=== PATIENT | male | born 1950 | race American Indian/Alaskan Native ===

== ENCOUNTER 2022-03-07 10:46 | Emergency (ER) | payer MEDICARE ==
[2022-03-07 11:04] VITALS: BP 172/90
--- NOTE | 2022-03-07 14:17 | Emergency Department Report ---
ED Recheck HPI - General Chief Complaint: High BP Stated Complaint: NATALIABRUNO/HIGH BLOOD PRESSURE Time Seen by Provider: 03/07/22 13:44 Source: patient Mode of arrival: Ambulatory Limitations: No Limitations - History of Present Illness Initial Comments: 71 yo come in p being sent by pcp for inc bp. Today was pt's welcome visit to new pcp and they did his bp and it was elevated. they gave him clonodine .1 and sent him here. He has no symptoms. Nor did he at the [facility] office. No cp no sob no headache no hx htn Pt states his office was to call in losartan but they did not - Related Data Allergies Allergy/AdvReac Type Severity Reaction Status Date / Time No Known Allergies Allergy Unverified 03/07/22 11:04 ED Review of Systems ROS: Stated complaint: DR BANUELOS/HIGH BLOOD PRESSURE Other details as noted in HPI Comment: All other systems reviewed and negative ED Past Medical Hx - Past Medical History Previous Medical History?: No - Surgical History Past Surgical History?: No - Family History Family history: no significant - Social History Smoking Status: Never Smoker Substance Use Type: None ED Physical Exam - General Limitations: No Limitations General appearance: alert, in no apparent distress - Head Head exam: Present: atraumatic, normocephalic - Eye Eye exam: Present: normal appearance - ENT ENT exam: Present: mucous membranes moist - Neck Neck exam: Present: normal inspection - Respiratory Respiratory exam: Present: normal lung sounds bilaterally. Absent: respiratory distress - Cardiovascular Cardiovascular Exam: Present: regular rate, normal rhythm. Absent: systolic murmur, diastolic murmur, rubs, gallop - GI/Abdominal GI/Abdominal exam: Present: soft, normal bowel sounds - Rectal Rectal exam: Present: deferred - Extremities Exam Extremities exam: Present: normal inspection - Back Exam Back exam: Present: normal inspection - Neurological Exam Neurological exam: Present: alert, oriented X3 - Psychiatric Psychiatric exam: Present: normal affect, normal mood - Skin Skin exam: Present: warm, dry, intact, normal color. Absent: rash ED Course Vital Signs 03/07/22 11:03 Temperature 98.5 F Pulse Rate 53 L Respiratory 18 Rate Blood Pressure 172/90 [Left] O2 Sat by Pulse 99 Oximetry ED Recheck MDM - Core Measures Measure Exclusions: not indicated - Medical Decision Making Vital Signs 03/07/22 11:03 Temperature 98.5 F Pulse Rate 53 L Respiratory 18 Rate Blood Pressure 172/90 [Left] O2 Sat by Pulse 99 Oximetry dc home with dc plan of care including diet, meds, activity and follow up. called the doctors office while here and they are to send the losartan rx to [facility] pharmacy. Critical care attestation.: If time is entered above; I have spent that time in minutes in the direct care of this critically ill patient, excluding procedure time. ED Disposition Clinical Impression: HTN (hypertension) Disposition: 01 HOME / SELF CARE / HOMELESS Is pt being admited?: No Does the pt Need Aspirin: No Condition: Stable Instructions: Hypertension (ED), Preventing Hypertension Additional Instructions: follow up with pcp as scheduled med as they have ordered Time of Disposition: 14:36
== END 2022-03-07 20:15 | disposition home or self-care (01) ==
LOC: ED 10:46
DX: I10 Essential (primary) hypertension (principal)
CPT/HCPCS: 99281; 99282